=== PATIENT | male | born 1955 | race Caucasian/White ===

== ENCOUNTER 2017-11-30 03:28 | Emergency (ER) | payer MEDICARE ==
[2017-11-30 03:36] VITALS: BP 173/93; PULSE 72; RESP 18; TEMP 97.4
[2017-11-30] MEDS ORDERED: predniSONE 50 MG TAB PO STA (03:51)
--- NOTE | 2017-11-30 03:55 | ED ---
General Adult HPI - General Chief complaint: ENT Stated complaint: throat problems Time Seen by Provider: 11/30/17 03:44 Source: patient, RN notes reviewed Mode of arrival: ambulatory Limitations: no limitations - History of Present Illness Initial comments: Patient is a pleasant 62-year-old male presenting to the emergency Department with throat irritation. Onset was around 7 PM yesterday and has somewhat worsened. Symptoms overall are still somewhat mild. Patient lives on his own and wanted to get checked out because of that. Patient does have rhinorrhea and cough. No dyspnea. Throat feels scratchy. Patient has had some chills. - Related Data Home Medications Medication Instructions Recorded Confirmed Atorvastatin Calcium [Lipitor] 10 mg PO DAILY 11/21/15 11/30/17 Lisinopril-Hctz 10-12.5 mg 1 tab PO DAILY 11/21/15 11/30/17 [Zestoretic 10-12.5] Metoprolol Succinate [Toprol XL] 11/30/17 Previous Rx's Medication Instructions Recorded Cephalexin [Keflex] 500 mg PO QID #40 cap 11/30/17 predniSONE 20 mg PO BID #10 tab 11/30/17 Allergies Allergy/AdvReac Type Severity Reaction Status Date / Time No Known Allergies Allergy Verified 11/30/17 03:35 Review of Systems ROS Statement: Those systems with pertinent positive or pertinent negative responses have been documented in the HPI. ROS Other: All systems not noted in ROS Statement are negative. Constitutional: Reports: chills Eyes: Denies: eye pain ENT: Reports: throat pain. Denies: ear pain Respiratory: Reports: cough. Denies: dyspnea Cardiovascular: Denies: chest pain Endocrine: Denies: fatigue Gastrointestinal: Denies: abdominal pain Genitourinary: Denies: urgency Musculoskeletal: Denies: back pain Skin: Denies: rash Neurological: Denies: weakness Past Medical History Past Medical History: Hyperlipidemia, Hypertension History of Any Multi-Drug Resistant Organisms: None Reported Past Surgical History: Back Surgery Additional Past Surgical History / Comment(s): CARPAL TUNNEL, Past Psychological History: No Psychological Hx Reported Smoking Status: Former smoker Past Alcohol Use History: None Reported Past Drug Use History: None Reported General Exam Limitations: no limitations General appearance: alert, in no apparent distress Head exam: Present: atraumatic Eye exam: Present: normal appearance, PERRL ENT exam: Present: other (Uvula is mildly erythematous and swollen.) Neck exam: Present: normal inspection Respiratory exam: Present: normal lung sounds bilaterally Cardiovascular Exam: Present: regular rate, normal rhythm GI/Abdominal exam: Present: soft. Absent: tenderness Extremities exam: Present: normal inspection Neurological exam: Present: alert Psychiatric exam: Present: normal affect, normal mood Skin exam: Present: normal color Course Vital Signs 11/30/17 03:32 Temperature 97.4 F L Pulse Rate 72 Respiratory 18 Rate Blood Pressure 173/93 O2 Sat by Pulse 98 Oximetry Disposition Clinical Impression: Uvulitis Disposition: HOME SELF-CARE Condition: Stable Instructions: Uvulitis (ED) Additional Instructions: Please follow-up with your doctor in the next day or 2 for recheck. Return for throat swelling, difficulty breathing, worsening symptoms or other concerns. There is a chance that your Zestoretic could be related with symptoms and this should be held until follow-up with your doctor. Prescriptions: Cephalexin [Keflex] 500 mg PO QID #40 cap predniSONE 20 mg PO BID #10 tab Referrals: Rui Estrada MD [Primary Care Provider] - 1-2 days Time of Disposition: 03:55
== END 2017-11-30 04:07 | disposition home or self-care (01) ==
LOC: EC 03:28
DX: K12.2 Cellulitis and abscess of mouth (principal); R05 Cough; J34.89 Other specified disorders of nose and nasal sinuses; E78.5 Hyperlipidemia, unspecified; I10 Essential (primary) hypertension; Z87.891 Personal history of nicotine dependence; Z79.899 Other long term (current) drug therapy
CPT/HCPCS: 99283; J7512

== ENCOUNTER → 2017-12-30 | Outpatient (CLI) | payer MEDICARE ==
--- NOTE | 2017-12-30 14:20 | XR ---
EXAMINATION TYPE: XR chest 2V DATE OF EXAM: 12/30/2017 COMPARISON: 12/06/2015 TECHNIQUE: PA and lateral views submitted. HISTORY: Cough FINDINGS: The lungs are clear and there is no pneumothorax, pleural effusion, or focal pneumonia. Arthropathy of the right shoulder. Atherosclerotic change aorta. IMPRESSION: 1. No acute process.
== END | disposition home or self-care (01) ==
LOC: RADXRMAIN 13:53
PROVIDERS: ATTEND Family Medicine
DX: J20.9 Acute bronchitis, unspecified (principal)
CPT/HCPCS: 71046

== ENCOUNTER 2018-06-13 21:34 | Emergency (ER) | payer MEDICARE ==
[2018-06-13] MEDS ORDERED: SODIUM CHLORIDE 0.9% 500 ML IV STA (22:19)
--- NOTE | 2018-06-13 22:21 | ED ---
General Adult HPI - General Chief complaint: Dizziness Stated complaint: dizziness/blurry vision/dry mouth Time Seen by Provider: 06/13/18 22:15 Source: patient, RN notes reviewed, old records reviewed Mode of arrival: ambulatory Limitations: no limitations - History of Present Illness Initial comments: 63-year-old male presenting for evaluation of lightheadedness. Denies symptoms of vertigo. States he just feels lightheaded like he may pass out. He had no syncopal episode. Denies headache. Denies vision changes. Denies focal numbness or weakness. Denies chest pain or shortness of breath. Denies abdominal pain nausea vomiting. Denies fever or chills. Patient has past medical history of hypertension. States he has been eating and drinking normally today. He does report that he is very thirsty. - Related Data Home Medications Medication Instructions Recorded Confirmed Atorvastatin Calcium [Lipitor] 10 mg PO DAILY 11/21/15 06/13/18 Aspirin [Adult Low Dose Aspirin EC] 81 mg PO DAILY 06/13/18 06/13/18 Metoprolol Tartrate [Lopressor] 25 mg PO BID 06/13/18 06/13/18 amLODIPine [Norvasc] 5 mg PO DAILY 06/13/18 06/13/18 Allergies Allergy/AdvReac Type Severity Reaction Status Date / Time No Known Allergies Allergy Verified 06/13/18 23:15 Review of Systems ROS Statement: Those systems with pertinent positive or pertinent negative responses have been documented in the HPI. ROS Other: All systems not noted in ROS Statement are negative. Past Medical History Past Medical History: Hyperlipidemia, Hypertension History of Any Multi-Drug Resistant Organisms: None Reported Past Surgical History: Back Surgery Additional Past Surgical History / Comment(s): CARPAL TUNNEL, Past Psychological History: No Psychological Hx Reported Smoking Status: Former smoker Past Alcohol Use History: Occasional Past Drug Use History: None Reported General Exam Limitations: no limitations General appearance: alert, in no apparent distress Head exam: Present: atraumatic, normocephalic Eye exam: Present: normal appearance, PERRL ENT exam: Present: mucous membranes dry Neck exam: Present: normal inspection. Absent: tenderness, meningismus Respiratory exam: Present: normal lung sounds bilaterally. Absent: respiratory distress, wheezes Cardiovascular Exam: Present: regular rate, normal rhythm GI/Abdominal exam: Present: soft. Absent: distended, tenderness Extremities exam: Present: normal inspection, normal capillary refill. Absent: pedal edema, calf tenderness Back exam: Present: normal inspection, full ROM Neurological exam: Present: alert, oriented X3, CN II-XII intact. Absent: motor sensory deficit Psychiatric exam: Present: normal affect, normal mood Skin exam: Present: warm, dry, intact. Absent: cyanosis, diaphoretic Course Vital Signs 06/13/18 06/13/18 21:48 22:14 Temperature 98.2 F Pulse Rate 80 70 Respiratory 18 18 Rate Blood Pressure 173/96 174/79 O2 Sat by Pulse 95 95 Oximetry EKG Findings - EKG Comments: EKG Findings:: EKG: Normal sinus rhythm, rate of 63, PA interval 170, QRS duration 96, QTC 392, no ST segment elevation or depression. No change from prior. Medical Decision Making - Medical Decision Making 63-year-old male presenting for evaluation of lightheadedness. Patient is well- appearing, stable vitals, nonfocal neurologic exam. EKG is normal sinus rhythm , unchanged from previous. Patient does appear somewhat dehydrated, dry mucous membranes. He receives IV hydration emergency department. CBC and CMP are unremarkable. Troponin negative. Chest x-ray negative for any acute cardiopulmonary findings. CT head is negative for intracranial hemorrhage or mass effect. Case is discussed with the patient's primary care physician Dr. Estrada, initial plan is for observation with telemetry for near-syncope. Patient declines admission. He prefers to follow up as an outpatient. He is feeling better after IV hydration. He will return with worsening or changing symptoms. - Lab Data Result diagrams: 06/13/18 22:28 06/13/18 22:28 Lab Results 06/13/18 06/13/18 06/13/18 Range/Units 22:17 22:28 22:28 WBC 8.1 (3.8-10.6) k/uL RBC 4.98 (4.30-5.90) m/uL Hgb 14.7 (13.0-17.5) gm/dL Hct 45.4 (39.0-53.0) % MCV 91.1 (80.0-100.0) fL MCH 29.6 (25.0-35.0) pg MCHC 32.5 (31.0-37.0) g/dL RDW 14.0 (11.5-15.5) % Plt Count 204 (150-450) k/uL Neutrophils % 70 % Lymphocytes % 20 % Monocytes % 6 % Eosinophils % 2 % Basophils % 0 % Neutrophils # 5.7 (1.3-7.7) k/uL Lymphocytes # 1.6 (1.0-4.8) k/uL Monocytes # 0.5 (0-1.0) k/uL Eosinophils # 0.2 (0-0.7) k/uL Basophils # 0.0 (0-0.2) k/uL Sodium 143 (137-145) mmol/L Potassium 4.1 (3.5-5.1) mmol/L Chloride 112 H (98-107) mmol/L Carbon Dioxide 23 (22-30) mmol/L Anion Gap 8 mmol/L BUN 18 (9-20) mg/dL Creatinine 0.90 (0.66-1.25) mg/dL Est GFR (CKD-EPI)AfAm >90 (>60 ml/min/1.73 sqM) Est GFR (CKD-EPI)NonAf 90 (>60 ml/min/1.73 sqM) Glucose 157 H (74-99) mg/dL POC Glucose (mg/dL) 152 H (75-99) mg/dL POC Glu [employer] ID Jo Clemons Calcium 8.9 (8.4-10.2) mg/dL Total Bilirubin 0.3 (0.2-1.3) mg/dL AST 29 (17-59) U/L ALT 47 (21-72) U/L Alkaline Phosphatase 82 (38-126) U/L Troponin I (0.000-0.034) ng/mL Total Protein 6.7 (6.3-8.2) g/dL Albumin 3.9 (3.5-5.0) g/dL 06/13/18 Range/Units 22:28 WBC (3.8-10.6) k/uL RBC (4.30-5.90) m/uL Hgb (13.0-17.5) gm/dL Hct (39.0-53.0) % MCV (80.0-100.0) fL MCH (25.0-35.0) pg MCHC (31.0-37.0) g/dL RDW (11.5-15.5) % Plt Count (150-450) k/uL Neutrophils % % Lymphocytes % % Monocytes % % Eosinophils % % Basophils % % Neutrophils # (1.3-7.7) k/uL Lymphocytes # (1.0-4.8) k/uL Monocytes # (0-1.0) k/uL Eosinophils # (0-0.7) k/uL Basophils # (0-0.2) k/uL Sodium (137-145) mmol/L Potassium (3.5-5.1) mmol/L Chloride (98-107) mmol/L Carbon Dioxide (22-30) mmol/L Anion Gap mmol/L BUN (9-20) mg/dL Creatinine (0.66-1.25) mg/dL Est GFR (CKD-EPI)AfAm (>60 ml/min/1.73 sqM) Est GFR (CKD-EPI)NonAf (>60 ml/min/1.73 sqM) Glucose (74-99) mg/dL POC Glucose (mg/dL) (75-99) mg/dL POC Glu [employer] ID Calcium (8.4-10.2) mg/dL Total Bilirubin (0.2-1.3) mg/dL AST (17-59) U/L ALT (21-72) U/L Alkaline Phosphatase (38-126) U/L Troponin I <0.012 (0.000-0.034) ng/mL Total Protein (6.3-8.2) g/dL Albumin (3.5-5.0) g/dL Disposition Clinical Impression: Dehydration, Near syncope Disposition: HOME SELF-CARE Condition: Good Instructions: Dehydration (ED), Dizziness (ED) Is patient prescribed a controlled substance at d/c from ED?: No Referrals: Rui Estrada MD [Primary Care Provider] - 1-2 days Time of Disposition: 00:44
[2018-06-13 22:31] LABS: Glucose,Whole Blood 152 mg/dL (75-99)
[2018-06-13 22:56] LABS: ALT 47 U/L (21-72); AST 29 U/L (17-59); Albumin 3.9 g/dL (3.5-5.0); Alkaline Phosphatase 82 U/L (38-126); Anion Gap 8 mmol/L; Blood Urea Nitrogen 18 mg/dL (9-20); Calcium 8.9 mg/dL (8.4-10.2); Carbon Dioxide 23 mmol/L (22-30); Chloride 112 mmol/L (98-107); Glucose 157 mg/dL (74-99); Potassium 4.1 mmol/L (3.5-5.1); Sodium 143 mmol/L (137-145); Total Bilirubin 0.3 mg/dL (0.2-1.3); Total Protein 6.7 g/dL (6.3-8.2)
[2018-06-13 23:00] LABS: Basophils % (A) 0 %; Eosinophils # (A) 0.2 k/uL (0-0.7); Eosinophils % (A) 2 %; HCT 45.4 % (39.0-53.0); HGB 14.7 gm/dL (13.0-17.5); Lymphocytes # (A) 1.6 k/uL (1.0-4.8); Lymphocytes % (A) 20 %; MCH 29.6 pg (25.0-35.0); MCHC 32.5 g/dL (31.0-37.0); MCV 91.1 fL (80.0-100.0); Mean Platelet Volume 6.8; Monocytes # (A) 0.5 k/uL (0-1.0); Monocytes % (A) 6 %; Neutrophils # (A) 5.7 k/uL (1.3-7.7); Neutrophils % (A) 70 %; Platelet Count 204 k/uL (150-450); RBC 4.98 m/uL (4.30-5.90); WBC 8.1 k/uL (3.8-10.6)
--- NOTE | 2018-06-13 23:13 | XR ---
EXAM: XR Chest, 2 Views CLINICAL HISTORY: Syncope TECHNIQUE: Frontal and lateral views of the chest. COMPARISON: Chest x-ray dated 12/30/2017 FINDINGS: Lungs: Unremarkable. No consolidation. Pleural space: Unremarkable. No pneumothorax. Heart: Unremarkable. No cardiomegaly. Mediastinum: Unremarkable. Bones/joints: Unremarkable. IMPRESSION: Normal chest x-rays.
--- NOTE | 2018-06-13 23:25 | CT ---
EXAM: CT Head Without Intravenous Contrast CLINICAL HISTORY: Pain TECHNIQUE: Axial computed tomography images of the head/brain without intravenous contrast. CTDI is 0.0 mGy and DLP is 1153 mGy-cm. This CT exam was performed using one or more of the following dose reduction techniques: automated exposure control, adjustment of the mA and/or kV according to patient size, and/or use of iterative reconstruction technique. COMPARISON: Head CT dated 12/09/2015 FINDINGS: Brain: No acute infarct, hemorrhage, mass or edema. No significant white matter disease. Ventricles: Unremarkable. No ventriculomegaly. Bones/joints: No acute osseous abnormality. Soft tissues: Unremarkable. Sinuses: Mild mucosal thickening of paranasal sinuses. Mastoid air cells: Unremarkable as visualized. No mastoid effusion. IMPRESSION: No acute findings.
[2018-06-14] MEDS ORDERED: METOPROLOL TARTRATE 25 MG TAB PO STA (00:56)
[2018-06-14] MEDS ORDERED: amLODIPine 5 MG TAB PO STA (00:56)
[2018-06-14 00:57] VITALS: TEMP 98
[2018-06-14 01:50] VITALS: RESP 16
[2018-06-14 02:25] VITALS: BP 153/93; PULSE 58
== END 2018-06-14 02:20 | disposition home or self-care (01) ==
LOC: EC 21:34
DX: E86.0 Dehydration (principal); R55 Syncope and collapse; E78.5 Hyperlipidemia, unspecified; I10 Essential (primary) hypertension; Z87.891 Personal history of nicotine dependence; Z79.82 Long term (current) use of aspirin; Z79.899 Other long term (current) drug therapy
CPT/HCPCS: 36415; 70450; 71046; 80053; 84484; 85025; 93005; 99285

== ENCOUNTER → 2020-08-18 | Outpatient (CLI) | payer MEDICARE | END | disposition home or self-care (01) | LOC: LABWHC1 09:46 | PROVIDERS: ATTEND Family Medicine | DX: Z20.828 Contact with and (suspected) exposure to other viral communicable diseases (principal) | CPT/HCPCS: U0003; C9803 ==

== ENCOUNTER → 2021-11-04 | Outpatient (CLI) | payer MEDICARE | END | disposition home or self-care (01) | LOC: LABWHC1 10:46 | PROVIDERS: ATTEND Family Medicine | DX: U07.1 COVID-19 (principal) | CPT/HCPCS: 87502; U0003; C9803 ==

== ENCOUNTER 2022-02-12 21:27 | Emergency (ER) | payer MEDICARE ==
[2022-02-12 22:15] VITALS: BP 168/81; PULSE 73; RESP 16; TEMP 98.6
[2022-02-12] MEDS ORDERED: DIPH,PERTUS(ACELL)TETVAC-LF 0.5 ML VIAL IM ONE (22:45)
[2022-02-12] MEDS ORDERED: AMOXIC-POT CLAV 875-125MG 1 EACH TAB PO STA (22:45)
--- NOTE | 2022-02-12 22:49 | ED ---
Animal Bite HPI - General Chief Complaint: Animal Bite Stated Complaint: Animal bite on L hand Time Seen by Provider: 02/12/22 22:39 Source: patient, RN notes reviewed Mode of arrival: ambulatory Limitations: no limitations - History of Present Illness Initial Comments: This is a pleasant, left hand dominant 66-year-old male who presents personnel with a dog bite to the dorsum of his left hand. This is the patient's own dog was up-to-date on immunizations. The dog has a family history of seizures and had a new onset seizure today. He went in to help the dog and the dog didn't recognize them and ended up nipping the dorsum of his hand. He still has some pain to the area. No distal or proximal pain. No distal paresthesias. Patient has no history of immunosuppression. History of hyperlipidemia and hypertension. Last tetanus is unknown. No headache, no fever or chills, no changes in vision or hearing, no sore throat or difficulty with speech, no neck pain, no chest pain or shortness of breath, no abdominal pain, no nausea or vomiting, no changes in urination or bowel movements, no numbness or tingling, no skin rashes or lesions. MD Complaint: animal bite - Related Data Home Medications Medication Instructions Recorded Confirmed Atorvastatin Calcium [Lipitor] 10 mg PO DAILY 11/21/15 06/15/18 Aspirin [Adult Low Dose Aspirin EC] 81 mg PO DAILY 06/13/18 06/15/18 Metoprolol Tartrate [Lopressor] 25 mg PO DAILY 06/13/18 06/15/18 amLODIPine BESYLATE [Norvasc] 10 mg PO DAILY 06/15/18 06/15/18 Previous Rx's Medication Instructions Recorded Metoprolol Tartrate [Lopressor] 12.5 mg PO BID tab 06/16/18 Amoxicillin/Potassium Clav 1 each PO Q12HR #20 tab 02/12/22 [Augmentin 875-125 Tablet] Allergies Allergy/AdvReac Type Severity Reaction Status Date / Time No Known Allergies Allergy Verified 06/15/18 20:12 Review of Systems ROS Statement: Those systems with pertinent positive or pertinent negative responses have been documented in the HPI. ROS Other: All systems not noted in ROS Statement are negative. Past Medical History Past Medical History: Hyperlipidemia, Hypertension History of Any Multi-Drug Resistant Organisms: None Reported Past Surgical History: Back Surgery Additional Past Surgical History / Comment(s): CARPAL TUNNEL surgery Past Anesthesia/Blood Transfusion Reactions: No Reported Reaction Past Psychological History: No Psychological Hx Reported Past Alcohol Use History: Occasional Past Drug Use History: None Reported - Past Family History Father Additional Family Medical History / Comment(s): heart issues Mother Additional Family Medical History / Comment(s): Stents General Exam Limitations: no limitations General appearance: alert, in no apparent distress Head exam: Present: atraumatic, normocephalic, normal inspection Eye exam: Present: normal appearance, PERRL, EOMI. Absent: scleral icterus, conjunctival injection, periorbital swelling ENT exam: Present: normal exam, mucous membranes moist Neck exam: Present: normal inspection, full ROM. Absent: tenderness, meningismus, lymphadenopathy Respiratory exam: Present: normal lung sounds bilaterally. Absent: respiratory distress, wheezes, rales, rhonchi, stridor Cardiovascular Exam: Present: regular rate, normal rhythm, normal heart sounds. Absent: systolic murmur, diastolic murmur, rubs, gallop, clicks GI/Abdominal exam: Present: soft, normal bowel sounds. Absent: distended, tenderness, guarding, rebound, rigid Extremities exam: Present: full ROM, tenderness (Soft tissue tenderness to the dorsum of the left hand. Small puncture wound noted. No active bleeding), normal capillary refill, pedal edema, calf tenderness, other (No evidence of infectious process. No evidence of foreign body. Capillary refill is normal. Pulses are 2+ out of 4.). Absent: joint swelling Back exam: Present: full ROM Neurological exam: Present: alert, oriented X3, CN II-XII intact Psychiatric exam: Present: normal affect, normal mood Skin exam: Present: warm, dry, intact, normal color. Absent: rash Course Vital Signs 02/12/22 22:09 Temperature 98.6 F Pulse Rate 73 Respiratory 16 Rate Blood Pressure 168/81 O2 Sat by Pulse 96 Oximetry Medical Decision Making - Medical Decision Making Patient presents with an isolated dog bite to the dorsum of his left hand. Dog up-to-date on immunizations. Patient's own Labrador retriever. Dog was having a seizure and was confused. Patient was given Augmentin. No evidence of underlying damage. No evidence of tendinous disruption. Patient consult and care. Counseled return and follow-up parents. Voiced understanding. All questions answered. Patient was told to return to the ER for any signs or symptoms worsen. Told to return immediately if any other problems arise. All questions answered. Treatment plan discussed. Patient in agreement Every effort has been made to ensure accuracy of this dictation. However, due to the limitations of electronic medical records and dictation devices, errors in charting still occur. Supervising physicians Dr. Slaughter - Radiology Data Radiology results: image reviewed (No acute pathology. Awaiting radiology interpretation.) Disposition Clinical Impression: Dog bite, Puncture wound of hand, left Disposition: HOME SELF-CARE Instructions (If sedation given, give patient instructions): Animal Bite (ED) Additional Instructions: Wash the wound daily with warm soap and water. Soak the wound 4 times daily in warm soap and water. Cover with a sterile Band-Aid or bandage. Take the antibiotic as directed. Follow-up with her regular doctor for wound check on Tuesday. Follow-up with your regular physician as directed. Return to the ER immediately if any symptoms worsen, new symptoms arise, or any other problems develop. Is patient prescribed a controlled substance at d/c from ED?: No Referrals: Rui Estrada MD [Primary Care Provider] - 02/15/22 Time of Disposition: 23:19
--- NOTE | 2022-02-12 23:14 | XR ---
EXAMINATION TYPE: XR hand complete LT DATE OF EXAM: 02/12/2022 COMPARISON: NONE HISTORY: Bite. Pain TECHNIQUE: Review FINDINGS: There is soft tissue air between the first and second metacarpal consistent with dog bite a nd laceration. I see no fracture nor dislocation. 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 Metacarpals are intact. There is soft tissue swelling of the dorsum of the hand with soft tissue air bubbles over the proximal metacarpals. IMPRESSION: Soft tissue laceration. No fracture.
== END 2022-02-12 23:59 | disposition home or self-care (01) ==
LOC: EC 21:27
DX: S61.452A Open bite of left hand, initial encounter (principal); E78.5 Hyperlipidemia, unspecified; Z23 Encounter for immunization; I10 Essential (primary) hypertension; Z79.82 Long term (current) use of aspirin; W54.0XXA Bitten by dog, initial encounter
CPT/HCPCS: 90471; 90715; 99283

== ENCOUNTER 2022-05-15 18:20 | Emergency (ER) | payer MEDICARE ==
--- NOTE | 2022-05-15 19:52 | ED ---
General Adult HPI - General Chief complaint: Upper Respiratory Infection Stated complaint: chest tightness, sweaty Time Seen by Provider: 05/15/22 18:46 Source: patient Mode of arrival: ambulatory Limitations: no limitations - History of Present Illness Initial comments: Patient is a 67-year-old male presents to the emergency room with complaints of generalized body aches along with some flushing and sweating. The symptoms began approximately 24 hours ago. He reports that he seeks care of his 92-year-old mother and had her out at her doctor's appointment and is concerned that he may have caught a viral infection while out. He denies any other specific symptoms except for an occasional nonproductive cough. Though in triage she reports some nasal congestion he denies any at this time. He denies any chest pain, shortness of breath, abdominal pain, nausea, vomiting, diarrhea, fevers that he evaluated with a thermometer, dizziness, or headaches. He reports that he is covered and influenza vaccinated. He has a past medical history signi ficant for hypertension and hyperlipidemia. He denies any other complaints or concerns at this time. - Related Data Home Medications Medication Instructions Recorded Confirmed Atorvastatin Calcium [Lipitor] 10 mg PO DAILY 11/21/15 06/15/18 Aspirin [Adult Low Dose Aspirin EC] 81 mg PO DAILY 06/13/18 06/15/18 Metoprolol Tartrate [Lopressor] 25 mg PO DAILY 06/13/18 06/15/18 amLODIPine BESYLATE [Norvasc] 10 mg PO DAILY 06/15/18 06/15/18 Previous Rx's Medication Instructions Recorded Metoprolol Tartrate [Lopressor] 12.5 mg PO BID tab 06/16/18 Amoxicillin/Potassium Clav 1 each PO Q12HR #20 tab 02/12/22 [Augmentin 875-125 Tablet] Allergies Allergy/AdvReac Type Severity Reaction Status Date / Time No Known Allergies Allergy Verified 05/15/22 18:25 Review of Systems ROS Statement: Those systems with pertinent positive or pertinent negative responses have been documented in the HPI. ROS Other: All systems not noted in ROS Statement are negative. Past Medical History Past Medical History: Hyperlipidemia, Hypertension History of Any Multi-Drug Resistant Organisms: None Reported Past Surgical History: Back Surgery Additional Past Surgical History / Comment(s): CARPAL TUNNEL surgery Past Anesthesia/Blood Transfusion Reactions: No Reported Reaction Past Psychological History: No Psychological Hx Reported Smoking Status: Never smoker Past Alcohol Use History: Occasional Past Drug Use History: None Reported - Past Family History Father Additional Family Medical History / Comment(s): heart issues Mother Additional Family Medical History / Comment(s): Stents General Exam Limitations: no limitations General appearance: alert, in no apparent distress Head exam: Present: atraumatic, normocephalic, normal inspection Eye exam: Present: normal appearance, PERRL, EOMI. Absent: scleral icterus, conjunctival injection, periorbital swelling ENT exam: Present: normal exam, mucous membranes moist Neck exam: Present: normal inspection, lymphadenopathy Respiratory exam: Present: normal lung sounds bilaterally. Absent: respiratory distress, wheezes, rales, rhonchi, stridor Cardiovascular Exam: Present: regular rate, normal rhythm, normal heart sounds. Absent: systolic murmur, diastolic murmur, rubs, gallop, clicks GI/Abdominal exam: Present: soft, normal bowel sounds. Absent: distended, tenderness, guarding, rebound, rigid Rectal exam: Present: deferred Extremities exam: Present: normal inspection, full ROM, normal capillary refill. Absent: tenderness, pedal edema, joint swelling, calf tenderness Back exam: Present: normal inspection Neurological exam: Present: alert, oriented X3, CN II-XII intact Psychiatric exam: Present: normal affect, normal mood Skin exam: Present: warm, intact (Localize excessive sweating to neck line), other Course Vital Signs 05/15/22 18:23 Temperature 99 F Pulse Rate 81 Respiratory 20 Rate Blood Pressure 171/124 O2 Sat by Pulse 97 Oximetry Medical Decision Making - Medical Decision Making Patient is a 67-year-old male presents with generalized body aches with acute onset without significant other symptomatology. EKG performed prior to evaluation. EKG without acute findings. No need for chest x-ray given lack of other respiratory symptoms. No indication for diagnostic imaging. Will check CBC, CMP along with COVID and influenza swabs. High probability for viral infection given acuity of onset with generalized symptoms. Denies need for analgesics at this time. Laboratory studies show normal hemogram and electrolytes. Glucose elevated I-131 however patient ate just prior to arrival to the emergency room. COVID and influenza swabs negative. No indication for further laboratory studies or diagnostic imaging. Advised patient there is a possibility that he is in the early stages of COVID given his body aches symptom along with occasional sweating despite his negative test at this time likely common cold though. Advised to continue to isolate/quarantine for 5 days past concern of exposure. Encouraged symptomatic treatment with Tylenol for fevers or pain. Encouraged addition of vitamin C supplementation along with zinc. Advised if symptoms seem to persist or worsen next 48 hours may repeat COVID testing at home and contact primary care provider regarding results. Case discussed with Dr. Centeno - Lab Data Result diagrams: 05/15/22 19:48 05/15/22 19:48 Lab Results 05/15/22 05/15/22 05/15/22 Range/Units 19:48 19:48 19:48 WBC 9.8 (3.8-10.6) k/uL RBC 4.92 (4.30-5.90) m/uL Hgb 14.3 (13.0-17.5) gm/dL Hct 44.3 (39.0-53.0) % MCV 90.0 (80.0-100.0) fL MCH 29.1 (25.0-35.0) pg MCHC 32.4 (31.0-37.0) g/dL RDW 13.5 (11.5-15.5) % Plt Count 191 (150-450) k/uL MPV 7.6 Neutrophils % 75 % Lymphocytes % 13 % Monocytes % 9 % Eosinophils % 1 % Basophils % 1 % Neutrophils # 7.4 (1.3-7.7) k/uL Lymphocytes # 1.3 (1.0-4.8) k/uL Monocytes # 0.9 (0-1.0) k/uL Eosinophils # 0.1 (0-0.7) k/uL Basophils # 0.1 (0-0.2) k/uL Sodium 137 (137-145) mmol/L Potassium 4.0 (3.5-5.1) mmol/L Chloride 104 (98-107) mmol/L Carbon Dioxide 24 (22-30) mmol/L Anion Gap 9 mmol/L BUN 18 (9-20) mg/dL Creatinine 1.06 (0.66-1.25) mg/dL Est GFR (CKD-EPI)AfAm 84 (>60 ml/min/1.73 sqM) Est GFR (CKD-EPI)NonAf 72 (>60 ml/min/1.73 sqM) Glucose 131 H (74-99) mg/dL Calcium 9.3 (8.4-10.2) mg/dL Total Bilirubin 0.7 (0.2-1.3) mg/dL AST 27 (17-59) U/L ALT 31 (4-49) U/L Alkaline Phosphatase 85 (38-126) U/L Total Protein 7.2 (6.3-8.2) g/dL Albumin 4.1 (3.5-5.0) g/dL Coronavirus (PCR) (Not Detectd) Influenza Type A RNA Not Detected (Not Detectd) Influenza Type B (PCR) Not Detected (Not Detectd) 05/15/22 Range/Units 19:48 WBC (3.8-10.6) k/uL RBC (4.30-5.90) m/uL Hgb (13.0-17.5) gm/dL Hct (39.0-53.0) % MCV (80.0-100.0) fL MCH (25.0-35.0) pg MCHC (31.0-37.0) g/dL RDW (11.5-15.5) % Plt Count (150-450) k/uL MPV Neutrophils % % Lymphocytes % % Monocytes % % Eosinophils % % Basophils % % Neutrophils # (1.3-7.7) k/uL Lymphocytes # (1.0-4.8) k/uL Monocytes # (0-1.0) k/uL Eosinophils # (0-0.7) k/uL Basophils # (0-0.2) k/uL Sodium (137-145) mmol/L Potassium (3.5-5.1) mmol/L Chloride (98-107) mmol/L Carbon Dioxide (22-30) mmol/L Anion Gap mmol/L BUN (9-20) mg/dL Creatinine (0.66-1.25) mg/dL Est GFR (CKD-EPI)AfAm (>60 ml/min/1.73 sqM) Est GFR (CKD-EPI)NonAf (>60 ml/min/1.73 sqM) Glucose (74-99) mg/dL Calcium (8.4-10.2) mg/dL Total Bilirubin (0.2-1.3) mg/dL AST (17-59) U/L ALT (4-49) U/L Alkaline Phosphatase (38-126) U/L Total Protein (6.3-8.2) g/dL Albumin (3.5-5.0) g/dL Coronavirus (PCR) Not Detected (Not Detectd) Influenza Type A RNA (Not Detectd) Influenza Type B (PCR) (Not Detectd) Disposition Clinical Impression: Body aches Disposition: HOME SELF-CARE Condition: Stable Additional Instructions: Please be advised that you currently tested negative for COVID and influenza however the possibility of development of both illnesses are possible. It was recommended to continue to quarantine for an additional 48 hours after symptom onset or 5 days if you test positive for COVID at home. Please utilize Tylenol [id number] for fevers or body aches as needed. Please follow-up with your primary care provider. Please return to the Emergency Department if symptoms worsen or any other concerns. Is patient prescribed a controlled substance at d/c from ED?: No Referrals: Rui Estrada MD [Primary Care Provider] - 1-2 days Time of Disposition: 20:39
[2022-05-15 20:15] LABS: Basophils # (A) 0.1 k/uL (0-0.2); Basophils % (A) 1 %; Eosinophils # (A) 0.1 k/uL (0-0.7); Eosinophils % (A) 1 %; HCT 44.3 % (39.0-53.0); HGB 14.3 gm/dL (13.0-17.5); Lymphocytes # (A) 1.3 k/uL (1.0-4.8); Lymphocytes % (A) 13 %; MCH 29.1 pg (25.0-35.0); MCHC 32.4 g/dL (31.0-37.0); Mean Platelet Volume 7.6; Monocytes # (A) 0.9 k/uL (0-1.0); Monocytes % (A) 9 %; Neutrophils # (A) 7.4 k/uL (1.3-7.7); Neutrophils % (A) 75 %; Platelet Count 191 k/uL (150-450); RBC 4.92 m/uL (4.30-5.90); RDW 13.5 % (11.5-15.5); WBC 9.8 k/uL (3.8-10.6)
[2022-05-15 20:23] LABS: Albumin 4.1 g/dL (3.5-5.0); Calcium 9.3 mg/dL (8.4-10.2); Total Bilirubin 0.7 mg/dL (0.2-1.3); Total Protein 7.2 g/dL (6.3-8.2)
[2022-05-15 21:05] VITALS: BP 142/82; PULSE 69; RESP 18; TEMP 98.4
== END 2022-05-15 21:05 | disposition home or self-care (01) ==
LOC: EC 18:20
DX: R07.89 Other chest pain (principal); R05.9 Cough, unspecified; R61 Generalized hyperhidrosis; I10 Essential (primary) hypertension; E78.5 Hyperlipidemia, unspecified; Z79.899 Other long term (current) drug therapy; Z20.822 Contact with and (suspected) exposure to COVID-19; Z79.82 Long term (current) use of aspirin
CPT/HCPCS: 36415; 80053; 85025; 87502; 87635; 93005; 99284

== ENCOUNTER → 2022-05-18 | Outpatient (CLI) | payer MEDICARE ==
--- NOTE | 2022-05-18 10:20 | XR ---
EXAMINATION TYPE: XR chest 2V DATE OF EXAM: 05/18/2022 10:08 AM COMPARISON: Chest radiographs from 06/05/2018 TECHNIQUE: XR chest 2V Frontal and lateral views of the chest. CLINICAL INDICATION:Male, 67 years old with history of J44.1 COPD; FINDINGS: Lungs/Pleura: There is flattening of the diaphragm with increased lucency of the lungs. No evidence o f pneumothorax, pleural effusion or focal consolidation. Pulmonary vascularity: Unremarkable. Heart/mediastinum: Cardiomediastinal silhouette is unremarkable. Musculoskeletal: No acute osseous pathology. IMPRESSION: 1. No acute cardiopulmonary disease process. 2. COPD changes.
== END | disposition home or self-care (01) ==
LOC: RADXRMAIN 09:48
PROVIDERS: ATTEND Family Medicine
DX: J44.1 Chronic obstructive pulmonary disease with (acute) exacerbation (principal)
CPT/HCPCS: 71046